=== PATIENT | female | born 1975 | race Caucasian/White ===

== ENCOUNTER 2020-10-07 22:44 | Emergency (ER) | payer BC, SELFPAY ==
[2020-10-07 22:45] VITALS: BP 127/77; PULSE 84; RESP 18; TEMP 36.7; O2SAT 99; BMI 31.7
[2020-10-07 23:35] LABS: Absolute Lymphocyte Count 1.89 X10^3/uL (0.83-4.51); Absolute Neutrophil Count 6.8 X10^3/uL (2.0-7.7); Basophil# 0.02 X10^3/uL; Basophil% 0.2 % (0-1); Eosinophil# 0.17 X10^3/uL; Eosinophils% 1.8 % (0-5); Hematocrit 40.6 % (37-47); Lymphocyte # 1.89 X10^3/ul (0.83-4.51); Lymphocyte % 19.9 % (19-41); Mean Corpuscular Hgb 26.1 pg (27.0-32.0); Mean Corpuscular Volume 81.4 fL (81-99); Mean Platelet Vol. 10.3 fl (6.2-12.0); Monocyte# 0.57 X10^3/uL; NRBC Flagged by Analyzer 0 % (0-5); Neutrophil # 6.79 X10^3/uL (2.7-7.7); Neutrophil % 71.7 % (47-70); POSITIVE COUNT YES; RBC Distribution Width SD 40.5 fl (35.1-43.9); Red Blood Count 4.99 M/mm3 (4.2-5.4); White Blood Count 9.5 K/mm3 (4.4-11.0)
[2020-10-07 23:37] LABS: Differential Indicated SCAN CRITERIA MET
[2020-10-07 23:53] LABS: Platelet Estimate ADEQUATE (ADEQ)
[2020-10-07 23:55] LABS: BNP,B-Type NATRIURETIC PEPTIDE 16.7 pg/mL (0-100)
[2020-10-08 00:06] LABS: AST(SGOT) 28 U/L (15-37); Alanine Aminotransfer ALT/SGPT 24 U/L (13-56); Albumin, Serum 3.8 g/dL (3.2-5.0); Alkaline Phosphatase 60 U/L (45-117); Anion Gap 8 (5-15); BUN 11 mg/dL (7-18); BUN/Creat Ratio 12.3 RATIO (10-20); Chloride 107 mmol/L (98-107); Creatinine, Serum 0.89 mg/dL (0.55-1.02); EST Glomerular Filtration Rate 72 mL/min (>60); Est Glom Filt Rate - Afr Amer 88 mL/min (>60); Estimated Creatinine Clearance 60.23 ml/min; Globulin 3.7 g/dL (2.2-4.2); Glucose 92 mg/dL (74-106); Potassium 4.2 mmol/L (3.5-5.1); Protein, Total 7.5 g/dL (6.4-8.2); Sodium Level 137 mmol/L (136-145); Thyroid Stim Hormone (TSH) 8.47 uIU/mL (0.358-3.74)
--- NOTE | 2020-10-08 00:41 | EDS_ITS ---
HPI History of Present Illness Chief Complaint: Edema Informant: patient Onset/Context/Timing Onset: - (Chronic) Context: Gradual Onset Location: Both lower extremities Current Severity: Moderate Worsened by: Use, standing Associated Symptoms Associated Symptoms: Dry skin, electrical pain Narrative Narrative: Patient has a remote history of vein stripping in her legs. She reports edema in her legs since, it was worse over the past week or so. She is gaining weight. She was started on Lasix for this but it does not seem to help. She takes ibuprofen for the pain. She was told she needed to follow-up with surgery, but she says she never had any laboratory testing or other testing for this. She uses compression stockings at night and they seem to help somewhat. She was concerned about her electrolytes and other causes of the edema. She denies any history of heart failure, liver disease, kidney disease. She was told at one point she had rheumatoid arthritis, but she said her testing was negative, so she stopped her medication for this. No other history of autoimmune or inflammatory disease. No history of DVTs. Prior similar symptoms: Yes Recent Illness/Hospitalization: No PFSH PFSH Home Medications Lasix 10/07/20 [History Last Taken Unknown] Allergy/AdvReac Type Severity Reaction Status Date / Time aspirin AdvReac NOSEBLEEDS Verified 10/07/20 22:47 Surgical History Hx of vein stripping Social History Smoking Status: Never smoker ROS ROS ED Constitutional Constitutional ED: Denies fever(s) Eyes Eyes: Denies change in vision ENT ENT ED: Denies ear pain Cardiovascular Cardiovascular: Denies chest pain Respiratory/Chest Respiratory/Chest: Denies dyspnea Gastrointestinal Gastrointestinal: Denies abdominal pain Genitourinary Genitourinary ED: Denies dysuria Musculoskeletal Musculoskeletal: Denies myalgias Integumentary Reports Abrasions and rash; Denies abscess Neurologic Neurologic: Denies headache(s), paresthesias or weakness Psychiatric Psychiatric: Denies depression Endocrine Endocrinology: Denies polyuria Allergic/Immunologic Allergic/Immunologic ED: Denies urticaria EXAM Physical Exam Const Vital Signs: 10/07/20 22:45 Temperature 98.1 F Temperature Source Temporal Pulse Rate 84 Respiratory Rate 18 Blood Pressure 127/77 H Blood Pressure Mean 93 Pulse Ox 99 Oxygen Delivery Method Room Air Positive well nourished and well developed General Appearance ED: well developed HEENT Negative for trauma or tenderness Eyes EOMs intact bilaterally Neck supple Resp normal respiratory effort and clear to auscultation bilaterally Cardio regular rate, regular rhythm and no murmurs Extremity Extremity Narrative: Nonpitting edema, chronic venous stasis changes, nontender, symmetric General Extremety ED: Yes edema General Extremity: edema Neuro oriented x3 Sensorium / Orientation: alert Psych mental status grossly normal Skin Skin Narrative: 1 abrasion to the left fagan and one abrasion to the right fagan, no surrounding erythema, no discharge, no bleeding, no increased warmth or other findings MDM MDM MDM Narrative Medical decision making narrative: Patient presents with lower extremity edema. No history of heart disease, liver disease, kidney disease. Lasix is not helping. She does get some paresthesias and neuropathic type pain from the edema. She has noted some dry skin and skin changes to the area as well. I suspect this is venous insufficiency. It started after vein stripping. She has no other significant disease. Nothing to suggest skin infection. Nothing to suggest DVT, her symptoms are bilateral. I checked basic labs, BNP, liver panel, thyroid function. Patient's work-up was all fairly unremarkable. Her TSH is slightly elevated at 8.47. I will advise her to follow-up with primary care for further testing and management of this. Nothing that requires emergency treatment or further emergency testing tonight. I do not believe this is the sole cause of her edema, but it may be contributing. Patient was advised to discontinue nonsteroidal anti-inflammatory drugs as these could also be contributing. Elevate, compression stockings. Continue Lasix if it helps, but the patient will likely need specialty referral. She requested referral to a new primary care physician and was given a couple local referrals as needed. Lab Data Attestation: I reviewed the patient's lab results. Labs: Laboratory Results - last 24 hr 10/07/20 10/07/20 10/07/20 23:30 23:30 23:30 WBC 9.5 RBC 4.99 Hgb 13.0 Hct 40.6 MCV 81.4 MCH 26.1 L MCHC 32.0 RDW Std Deviation 40.5 RDW Coeff of Wyatt 14.0 Plt Count EATING DISORDER PSYCHOLOGIST MPV 10.3 Immature Gran % (Auto) 0.400 Neut % (Auto) 71.7 H Lymph % (Auto) 19.9 Hemphill % (Auto) 6.0 Eos % (Auto) 1.8 Baso % (Auto) 0.2 Absolute Neuts (auto) 6.8 Absolute Lymphs (auto) 1.89 Nucleated RBC % 0 Platelet Estimate ADEQUATE Sodium 137 Potassium 4.2 Chloride 107 Carbon Dioxide 22.0 Anion Gap 8 BUN 11 Creatinine 0.89 Estim Creat Clear Calc 60.23 Est GFR (MDRD) Af Amer 88 Est GFR (MDRD) Non-Af 72 BUN/Creatinine Ratio 12.3 Glucose 92 Calcium 9.0 Total Bilirubin 0.30 AST 28 ALT 24 Alkaline Phosphatase 60 B-Natriuretic Peptide 16.7 Total Protein 7.5 Albumin 3.8 Globulin 3.7 Albumin/Globulin Ratio 1.0 TSH 8.47 H Discharge Plan Triage Chief Complaint: Edema ED Provider: Rick Lema Dx/Rx/DC Orders Clinical Impression: Chronic venous insufficiency, Hypothyroid Instructions: ED Peripheral Edema, Bilateral Prescriptions: No Action Lasix RF: 0 Primary Care Provider: Zen Quinteros Referrals: Farooq Campo MD [STAFF PHYSICIAN] - Carrie Luna MD [STAFF PHYSICIAN] - Disposition Disposition: Home, Self Care Discharge Date/Time: 10/08/20 00:48
[2020-10-08 00:48] VITALS: BP 125/74; PULSE 74; RESP 16; O2SAT 99
== END 2020-10-08 00:48 | disposition home or self-care (01) ==
PROVIDERS: Emergency Provider Emergency Medicine; PCP Family Medicine
DX: I87.2 Venous insufficiency (chronic) (peripheral) (principal); E03.9 Hypothyroidism, unspecified; Z79.899 Other long term (current) drug therapy
CPT/HCPCS: 36415; 80053; 83880; 84443; 85025; 99282; A4216